=== PATIENT | female | born 1965 | race Caucasian/White ===

== ENCOUNTER 2018-08-30 08:54 | Emergency (ER) | payer OTHER ==
[2018-08-30 09:08] VITALS: BP 114/58; PULSE 114; BMI 21.9
--- NOTE | 2018-08-30 10:36 | PDOC ---
History of Present Illness - General Chief Complaint: Sore Throat Stated Complaint: HEADACHE, SORE THROAT Time Seen by Provider: 08/30/18 09:46 History Source: Patient Exam Limitations: No Limitations - History of Present Illness Initial Comments: 08/30/18 10:33 Patient came for evaluation of worsened fevers, body aches, moist nonproductive cough 24 hours. No one else at home is sick. Has used ibuprofen for moderate relief Timing/Duration: reports: getting worse, gone now Severity: reports: moderate Associated Symptoms: reports: chest pain/soreness, cough, earache, fever/chills , nasal congestion, nasal drainage, sore throat Past History - Travel Traveled outside of the country in the last 30 days: No Close contact w/someone who was outside of country & ill: No - Past Medical History Allergies/Adverse Reactions: Allergies Allergy/AdvReac Type Severity Reaction Status Date / Time No Known Allergies Allergy Verified 08/30/18 09:11 Home Medications: Ambulatory Orders Azithromycin [Zithromax -] 250 mg PO UTDICT #6 tab 08/30/18 COPD: No - Surgical History Abdominal Surgery: Yes (TUBAL LIGATION) - Suicide/Smoking/Psychosocial Hx Smoking History: Never smoked Have you smoked in the past 12 months: No Information on smoking cessation initiated: No Hx Alcohol Use: No Drug/Substance Use Hx: No Substance Use Type: None Review of Systems - Review of Systems Able to Perform ROS?: Yes Is the patient limited [place] proficient: Yes Constitutional: Yes: Symptoms Reported, See HPI, Chills, Fever, Malaise, Weakness HEENTM: Yes: Symptoms Reported, See HPI, Nose Congestion Respiratory: Yes: Symptoms reported, See HPI, Cough. No: Wheezing ABD/GI: Yes: Symptoms Reported, See HPI, Nausea All Other Systems: Reviewed and Negative *Physical Exam - Vital Signs Last Vital Signs Temp Pulse Resp BP Pulse Ox 102.3 F H 114 H 19 114/58 L 100 08/30/18 09:47 08/30/18 09:04 08/30/18 09:04 08/30/18 09:04 08/30/18 09:04 - Physical Exam General Appearance: Yes: Nourished, Appropriately Dressed, Apparent Distress, Mild Distress, Moderate Distress HEENT: positive: PRINCESS, TMs Normal (congested but landmarks easily visualized), Pharynx Normal (mild erythema but no exudate noted), Rhinorrhea, Sinus Tenderness Neck: positive: Tender, Supple, Lymphadenopathy (R), Lymphadenopathy (L) Respiratory/Chest: positive: Lungs Clear, Normal Breath Sounds (diminished but no crackles or wheezing noted), Accessory Muscle Use Gastrointestinal/Abdominal: positive: Normal Bowel Sounds, Soft. 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 Will treat with azithromyin to cover bacterial components *DC/Admit/Observation/Transfer Diagnosis at time of Disposition: URI, acute - Discharge Dispostion Disposition: HOME Condition at time of disposition: Stable Decision to Admit order: No - Prescriptions Prescriptions: Azithromycin [Zithromax -] 250 mg PO UTDICT #6 tab - Referrals Referrals: Ginger Richardson MD [Primary Care Provider] - - Patient Instructions Printed Discharge Instructions: DI for Acute Bronchitis Additional Instructions: Rest, drink lots of fluids: Teas, water, soups, Pedialyte Saltwater gargles Steamy showers/seem to face break up mucus Avoid contact with others until fevers and cough resolved Lots of handwashing and good hygiene Continue [id number] medications for symptomatic relief Tylenol or Motrin for fever and pain Followup with private physician in one to 2 days as needed Return to emergency department for worsened symptoms, fevers, dehydration - Post Discharge Activity Forms/Work/School Notes: Back to Work
[2018-08-30 12:18] VITALS: TEMP 98.5
== END 2018-08-30 12:32 | disposition home or self-care (01) ==
LOC: JERFT 08:54
DX: J06.9 Acute upper respiratory infection, unspecified (principal)
CPT/HCPCS: 87070; 87804; 87880; 99281-25

== ENCOUNTER → 2019-09-17 | Day surgery (SDC) | payer OTHER ==
--- NOTE | 2019-09-18 15:36 | PATH ---
Surgical Pathology Report Patient Name: XIN CLEMENTS [facility]. Rec. #: [id number] /Age/Gender: 1965 (Age: 53) / F Account: [id number] [facility]17[facility]2019 Received: 09/17/2019 Reported: 09/18/2019 Physicians: Misha Higgins M.D. Specimen(s) Received RIGHT BREAST 6 OCLOCK 1CM MASS Clinical History Ultrasound findings: Probably benign Rt breast 6:00 1 cm mass Final Diagnosis BREAST, RIGHT, 6:00, US-GUIDED CORE BIOPSY: BENIGN BREAST TISSUE SHOWING FIBROADENOMA. Electronically Signed Analisa Dick M.D. Gross Description Received in formalin labeled "right breast 6:00," are 3 katz-yellow fragments of fibroadipose tissue ranging from 0.1-0.5cm in length and averaging 0.1 cm in diameter. The specimen is submitted in toto in one cassette. Time to formalin fixation: < 1 minute Total formalin fixation time: Approximately 6 hours. /09/17/2019 [facility]09/17/2019
== END | disposition home or self-care (01) ==
LOC: JRADUS 08:50 → JRADUS-SUR 08:50
PROVIDERS: ATTEND Specialist
PROC: 0H9T3ZX Drainage of Right Breast, Percutaneous Approach, Diagnostic (ICD-10-PCS; principal; 2019-09-17)
DX: D24.1 Benign neoplasm of right breast (principal)
CPT/HCPCS: 19083; 76641-TC-RT; 76642-TC-RT; 87899; 88305-TC; A4648